=== PATIENT | male | born 1970 | race Caucasian/White ===

== ENCOUNTER 2024-12-07 07:52 | Day surgery (SDC) | payer OTHER ==
[2024-12-01 16:11] VITALS: BMI 37.3
[2024-12-07 08:06] VITALS: RESP 18
[2024-12-07] MEDS ORDERED: PROPOFOL 140 ML ONE (08:17)
[2024-12-07 14:53] VITALS: BP 119/69; PULSE 68; TEMP 97.6
== END 2024-12-07 09:55 | disposition home or self-care (01) ==
LOC: FASU-ENDO 07:52
PROVIDERS: ATTEND Internal Medicine Gastroenterology
PROC: 0DBP8ZZ Excision of Rectum, Via Natural or Artificial Opening Endoscopic (ICD-10-PCS; principal; 2024-12-07 09:00)
DX: Z12.11 Encounter for screening for malignant neoplasm of colon (principal); D12.8 Benign neoplasm of rectum
CPT/HCPCS: 88305-TC